=== PATIENT | male | born 1965 | race Caucasian/White ===

== ENCOUNTER → 2017-09-18 | Day surgery (SDC) | payer BC, OTHER ==
[2017-09-13 10:13] VITALS: BMI 25.4
[~2017-09-18] MED LIST: DEXAMETHASONE SOD PHOSPHATE 10 MG/ML 1 ML VIAL IV ONE; HEPARIN SODIUM,PORCINE 5,000 UNIT/ML 1 ML VIAL SQ ONE; LACTATED RINGERS 1,000 ML IV SCH; LIDOCAINE 1% 20 ML VIAL (10MG/ML) FOR IV START INTRADERMA ONE; LIDOCAINE 1% INJ 10MG/ML (20 ML MDV) ONE; LIDOCAINE 1% INJ 10MG/ML (20 ML MDV) SQ ONE; MIDAZOLAM 2 MG/2 ML VIAL IV PRN; MIDAZOLAM 2 MG/2 ML VIAL ONE; ONDANSETRON 4 MG/2 ML VIAL IVP ONE; PROPOFOL 10 MG/ML 20 ML VIAL IV ONE; Pre Op ABX Message 1 EACH MISC MISCELLANE ONE; ceFAZolin 1,000 MG/50 ML BAG (PMX) IVPB ONE; ePHEDrine SULFATE/0.9% NACL/PF 50 MG/5 ML SYRINGE IV ONE; fentaNYL (PF) 50 MCG/ML 2 ML AMP ONE
--- NOTE | 2017-09-18 11:25 | P.OP ---
Date of Procedure: 09/18/17 Preoperative Diagnosis: Left breast painful gynecomastia Postoperative Diagnosis: same Procedure(s) Performed: Left breast excision of gynecomastia Anesthesia: JOAO Surgeon: Ilene Phelan Estimated Blood Loss (ml): 20 IV fluids (ml): 400 Pathology: other (breast tissue) Condition: stable Disposition: PACU Indications for Procedure: Painful gynecomastia Operative Findings: dense Breast tissue behind in the nipple/areolar complex Description of Procedure: Patient was taken to the operating room and following induction of anesthesia the left breast was prepped and draped in a sterile fashion. A circumareolar incision was made and carried laterally. Superior and inferior skin flaps were developed. The breast tissue was dissected down to the chest wall. Using the Harmonic scalpel hemostasis was attained. The tissue was dissected free from the pectoralis major muscle using the electrocautery device and harmonic scalpel. The dense gynecomastia tissue was removed with the specimen. The dissection was carried laterally to the border the pectoralis major muscle. The specimen was removed. After we were assured that hemostasis was attained the wound was well irrigated. The deep tissues were closed using 3-0 Vicryl suture. The skin was closed using 4-0 Monocryl. Prior to closure a [place] drain was placed and secured using a nylon suture. All instrument and sponge counts were correct at the end of the case. Patient tolerated the procedure in stable condition.
--- NOTE | 2017-09-18 11:27 | P.DS ---
Providers Attending physician: Ilene Phelan Primary care physician: Vitaliy Langford Plan - Discharge Summary New Discharge Prescriptions: No Action Lisinopril [Zestril] 10 mg PO DAILY Discharge Medication List Lisinopril [Zestril] 10 mg PO DAILY 09/13/17 [History] Follow up Appointment(s)/Referral(s): Ilene Phelan MD [STAFF PHYSICIAN] - 1 Week Activity/Diet/Wound Care/Special Instructions: do not drive today teach patient drain care may shower after 48 hours keep pressure dressing on at all times Discharge Disposition: HOME SELF-CARE
[2017-09-18 11:41] VITALS: TEMP 97.4
[2017-09-18] MEDS: HYDROmorphone 0.5 MG/0.5 ML SYRINGE IVP PRN ×4 (11:45→12:30)
[2017-09-18 12:05] LABS: Glucose,Whole Blood 139 mg/dL (75-99)
[2017-09-18 14:14] VITALS: RESP 18
[2017-09-18 14:16] VITALS: BP 107/67; PULSE 88
== END | disposition home or self-care (01) ==
LOC: OR 08:11
PROVIDERS: ATTEND Surgery
DX: N62 Hypertrophy of breast (principal); N60.81 Other benign mammary dysplasias of right breast; Z87.891 Personal history of nicotine dependence; I10 Essential (primary) hypertension; Z79.899 Other long term (current) drug therapy
CPT/HCPCS: 88305; 19300; J2250; J1644; J1100; J2405; J2001; J3010; J0690; J2704; J1170; 88307

== ENCOUNTER → 2018-07-09 | Outpatient (CLI) | payer BC, OTHER ==
--- NOTE | 2018-07-09 15:02 | CT ---
EXAMINATION TYPE: CT knee RT wo con DATE OF EXAM: 07/09/2018 COMPARISON: 06/06/2010 plain films HISTORY: Right knee pain post trauma 1 month ago, sprain of medial collateral ligament, sprain anteri or cruciate ligament CT DLP: 533.6 mGycm Automated exposure control for dose reduction was used. FINDINGS: Subtle cortical irregularity along the posterior margin lateral tibial plateau is present in the axia l plane. Example image series 3 image 49. Posterior tibial plateau chip fracture could be considered. This may be the appearance due to degenerative changes. Correlate with location of the patient's sofie n. No additional areas suspicious for possible fracture are identified. Joint space appears preserved. There is moderate soft tissue swelling along the medial collateral lig ament region. Smoothly marginated metaphyseal hypodensity within the proximal tibia is present. This has a benign a ppearance. Aneurysmal bone cyst may be present. IMPRESSION: 1. POSTERIOR TIBIAL PLATEAU FRACTURE WITHIN THE LATERAL COMPARTMENT IS NOT EXCLUDED. PLEASE SEE ABOVE DISCUSSION, CORRELATE WITH LOCATION OF THE PATIENT'S PAIN. ADDITIONAL AREAS SUSPICIOUS FOR FRACTURE ARE NOT EVIDENT. 2. SOFT TISSUE SWELLING ALONG THE ANTERIOR AND MEDIAL ASPECT OF THE RIGHT KNEE ON THE EXPECTED REGION OF THE MEDIAL COLLATERAL LIGAMENT. STRAIN OR PARTIAL TEAR SHOULD BE CONSIDERED. CORRELATE WITH MRI R ESULTS.
== END ==
LOC: RADCTMAIN 09:23
PROVIDERS: ATTEND Orthopaedic Surgery Sports Medicine
DX: M79.89 Other specified soft tissue disorders (principal)

== ENCOUNTER 2018-08-09 06:53 | Day surgery (SDC) | payer BC, OTHER ==
[2018-08-06 09:12] VITALS: BMI 27.2
[~2018-08-09 06:53] MED LIST changes: -HEPARIN SODIUM,PORCINE 5,000 UNIT/ML 1 ML VIAL SQ ONE; -LIDOCAINE 1% 20 ML VIAL (10MG/ML) FOR IV START INTRADERMA ONE; +LIDOCAINE 1% 20 ML VIAL (10MG/ML) FOR IV START INTRADERMA PRN; -LIDOCAINE 1% INJ 10MG/ML (20 ML MDV) ONE; -LIDOCAINE 1% INJ 10MG/ML (20 ML MDV) SQ ONE; +MIDAZOLAM (PF) 2 MG/2 ML VIAL IV PRN; -MIDAZOLAM 2 MG/2 ML VIAL IV PRN; -MIDAZOLAM 2 MG/2 ML VIAL ONE; -ONDANSETRON 4 MG/2 ML VIAL IVP ONE; -PROPOFOL 10 MG/ML 20 ML VIAL IV ONE; -Pre Op ABX Message 1 EACH MISC MISCELLANE ONE; -ceFAZolin 1,000 MG/50 ML BAG (PMX) IVPB ONE; +ceFAZolin IN SWFI 2 GM/20 ML SYRINGE IVP ONE; -ePHEDrine SULFATE/0.9% NACL/PF 50 MG/5 ML SYRINGE IV ONE; +fentaNYL (PF) 50 MCG/ML 2 ML AMP IV PRN; -fentaNYL (PF) 50 MCG/ML 2 ML AMP ONE
[2018-08-09] MEDS ORDERED: DEXAMETHASONE SOD PHOS (MDV) 100 MG/10 ML VIAL IVP ONE (07:41)
[2018-08-09] MEDS ORDERED: LIDOCAINE 1% INJ 10MG/ML (20 ML MDV) ONE (08:06)
[2018-08-09] MEDS ORDERED: MIDAZOLAM 2 MG/2 ML VIAL ONE (08:06)
[2018-08-09] MEDS ORDERED: NEOSTIGMINE 1 MG/ML 10 ML VIAL ONE (08:06)
[2018-08-09] MEDS ORDERED: fentaNYL (PF) 50 MCG/ML 2 ML AMP ONE (08:06)
[2018-08-09] MEDS ORDERED: HYDROmorphone (PF) 1 MG/ML ONE (08:06)
[2018-08-09] MEDS ORDERED: GLYCOPYRROLATE 0.2 MG/ML 2 ML VIAL ONE (08:06)
[2018-08-09] MEDS ORDERED: PROPOFOL 10 MG/ML 20 ML VIAL IV ONE (08:06)
[2018-08-09] MEDS ORDERED: SUCCINYLCHOLINE CHLORIDE 100 MG/5 ML SYR IV ONE (08:06)
[2018-08-09] MEDS ORDERED: ROCURONIUM BROMIDE 10 MG/ML 10 ML VIAL IV ONE (08:06)
[2018-08-09] MEDS ORDERED: BUPIVACAINE (PF) 0.25% 30 ML VIAL SQ ONE ×2 (08:44)
[2018-08-09] MEDS ORDERED: ceFAZolin 1,000 MG in SODIUM CHLORIDE 0.9% 1,000 ML IRRIGATION ONE (08:47)
[2018-08-09] MEDS ORDERED: LACTATED RINGERS 1,000 ML IV ONE (09:30)
[2018-08-09] MEDS: MEPERIDINE 50 MG/ML SYRINGE IVP ONE ×2 (10:05→10:13)
[2018-08-09 10:14] VITALS: TEMP 96.8
[2018-08-09 10:19] VITALS: RESP 16
[2018-08-09] MEDS: HYDROmorphone 1 MG/ML 1 ML SYRINGE IVP ONE ×2 (10:42→10:51)
[2018-08-09] MEDS ORDERED: HYDROcodone/APAP 7.5-325MG 1 EACH TAB PO ONE (11:32)
[2018-08-09 11:54] VITALS: BP 134/88; PULSE 74
--- NOTE | 2018-08-27 09:05 | P.OP ---
Date of Procedure: 08/12/18 Procedure(s) Performed: PREOPERATIVE DIAGNOSES: 1. Right knee anterior cruciate ligament tear POSTOPERATIVE DIAGNOSES: 1. Right knee anterior cruciate ligament tear PROCEDURES PERFORMED: 1. Right knee arthroscopically-assisted anterior cruciate ligament reconstruction with soft tissue allograft ANESTHESIA: human resources office assistant: Lindy Rudolph PA-C (assistance with: patient positioning, retraction, graft prep, camera operation, reconstruction, irrigation, closure, dressing) COMPLICATIONS: None ESTIMATED BLOOD LOSS: Less than 20 cc TOURNIQUET: 75 minutes DISPOSITION: To post-anesthesia care unit INDICATIONS: Margarito is a 53-year-old male with a history of right knee ACL tear. We have discussed different approaches to ACL reconstruction and the decision is for hamstring autograft reconstruction. I have explained the details of this surgery thoroughly and also explained the potential risks and complications, including the relative risks of graft failure. Other risks are inclusive of, but not limited to: bleeding, infection, scarring, discomfort, blood vessel and nerve damage, stiffness, weakness, need for further surgery, failure to relieve symptoms, persistence or worsening of problems, , and other risks. The patient and parents are aware of these risks and agree to proceed with surgery. The consent form has been signed. PROCEDURE: After appropriate consent was obtained, the patient was taken to the operating room and placed supine on the operating table. General anesthesia was initiated. The knee was examined under anesthesia. Medial collateral, lateral collateral and posterior cruciate ligaments were all intact. There was positive pivot shift of 2+ and 4mm anterior translation with both Miladys and anterior drawer. Full range of motion was noted without crepitus. No effusion or soft tissue swelling was noted. Prepping and draping of the right knee was performed in the usual sterile fashion using ChloraPrep. Care was taken that all pressure points were adequately padded. Leg bhakta and pneumotourniquet were used. Time-out was called according to [employer] standards, confirming patient identity, surgical procedure, side, and antibiotic administration. Graft preparation took place on the Arthrex graft preparation station. The preprepared graft was inserted onto the Arthrex ACL tightrope RT on one side , and the ABS sutures on the other. These devices were then attached to the adjustable sliding units on the prep station. The graft was then set to 20 pounds of tension on the graft prep board and covered with a sterile saline soaked gauze pad. During the preparation of the graft, arthroscopy commenced. The surgical portals were placed directly next to the patellar tendon medially and laterally. Camera and instruments were carefully inserted into the knee and arthroscopy was performed. The patellofemoral joint was normal. Hyaline cartilage was normal. No loose bodies in the medial or lateral gutters, quad tendon normal. No plica. Lateral compartment showed normal hyaline cartilage without defect. Meniscus was normal to visualization and probing. No loose bodies were seen within the lateral compartment. Medial compartment was then examined. Medial hyaline cartilage of the femur and tibia were normal. Medial meniscus showed minor degenerative changes but nothing that needed surgical treatment. The notch of the knee was then inspected. The patient had a complete tear of the ACL at the femoral attachment with a small Cyclops lesion. The remnant was debrided away with care to avoid injuring the PCL. The notch in this patient was somewhat narrow, and so it was expanded in the lateral direction with a heladio. Only 3 mm of bone was resected from the lateral portion of the notch, just enough to get the guide in.. The soft tissue on the lateral side of the notch was cleared as necessary using a shaver. Next, the femoral socket was created using the Arthrex flip cutter guide. The guide was adjusted through the anterolateral portal after careful measurement of the anterior to posterior condylar distance on the lateral notch. A spot approximately between 40 and 50% of this length was chosen and the guide was moved superiorly only as much as to allow for a 2.5 mm back wall. Incision was created on the lateral side of the thigh over the IT band and the guide was placed against the bone. Guide position was adjusted so that there was 20 of anterior elevation in the coronal plane of the femur and 60 in the sagittal plane. Drilling was then performed using the flip cutter drill pin into the knee at the appropriate location. Once the pin position was noted to be satisfactory, the guide was removed and the drill sleeve was tapped into the bone using a mallet. The flip cutter was then deployed and retro-drilling was performed to create a femoral socket of approximately 25 mm. Debris was suctioned out using a shaver. Passing suture was then inserted into the knee joint and carried out through the anteromedial portal. The tibial tunnel was created by the following steps. The retro-cutter aiming guide for the tunnel was placed into the anteromedial portal and onto the cleared central footprint of the mentasta ACL. The guide cylinder was placed securely on the tibial cortex. The tibial bone length was measured. The retro- cutter guide pin was then inserted into the tibia to emerge at the mid- posterior aspect of the mentasta ACL footprint, approximately 5 mm from the PCL and just anterior to the posterior border of the anterior horn of the lateral meniscus. The pin was noted to be in excellent position. The retro-cutter was then deployed and reverse drilling was performed creating a tibial socket approximately 30 mm in length. No fracture was noted. The intraarticular debris was removed using a shaver. Graft passing suture was placed. The femoral portion of the GraftLink construct was then inserted into the knee joint, guided by the passing suture. The Endobutton was carried through the femoral cortex and flipped, engaging the cortex securely. Approximately 10 mm or so of the graft was then placed into the femoral socket, using the sutures of the Endobutton. In similar fashion, the graft passing suture was placed into the loop and brought out through the tibial tunnel. This brought the tibial ABS sutures along with it. Approximately 15 mm of graft was placed within the tibial tunnel at which point the adjustable button for the tibia was placed on the sutures. The femoral portion of the graft was completely deployed at this point and bottomed out nicely. The adjustable button was confirmed to be on the cortex of the tibia without interposed soft tissue and preliminary tensioning was performed at that point in full extension. No graft impingement was noted. The knee was then taken through range of motion cycling 10 times. There was no significant motion of the graft detected and the femoral and tibial fixation was noted to be solid. Further tightening of the sutures was performed in extension from the tibial side and the knee was cycled 10 more times with final tightening of the sutures at that point. Sutures were then tied together over the button. Knee was then taken through range of motion which was noted to be full. No graft impingement was noted at the roof or sides of the notch. Fluid was removed from the knee and testing was performed. Anterior drawer 0 mm and Miladys 0 mm. Negative pivot shift. Tourniquet was deflated. Hemostasis was obtained using cautery and pressure. Graft passing sutures were removed or cut as necessary. Thorough irrigation using antibiotic solution was performed, and portals were closed with 4-0 Monocryl suture. Posterior medial incision for hamstring harvest was closed with 3-0 Vicryl suture in the subcutaneous tissue, followed by 4-0 Monocryl suture in running subcuticular fashion for the skin, followed by Dermabond. Tibial incision was closed with 4-0 Monocryl for the skin. Steri strips were applied. Sterile dressing and light compressive dressing was applied using Webril and LORENA wrap. Knee immobilizer was applied. Patient tolerated the procedure well and taken to recovery room in stable condition. Sponge and needle counts were correct.
== END 2018-08-09 12:19 | disposition home or self-care (01) ==
LOC: OR 06:53
PROVIDERS: ATTEND Orthopaedic Surgery
DX: S83.511A Sprain of anterior cruciate ligament of right knee, initial encounter (principal); W14.XXXA Fall from tree, initial encounter; I10 Essential (primary) hypertension; Z96.89 Presence of other specified functional implants; Z79.1 Long term (current) use of non-steroidal anti-inflammatories (NSAID); Z79.891 Long term (current) use of opiate analgesic; Z87.891 Personal history of nicotine dependence
CPT/HCPCS: 29888; C1713; J2250; J2710; J2175; J0690 ×2; J2001; J3010; J1170; J1100; J0330; J2704

== ENCOUNTER → 2022-05-19 | Outpatient (CLI) | payer BC ==
[2022-05-19 16:09] VITALS: BP 159/96; PULSE 98; RESP 18; TEMP 97.8
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
== END | disposition home or self-care (01) ==
LOC: WWCWWP 15:45
PROVIDERS: ATTEND Surgery
DX: Z53.9 Procedure and treatment not carried out, unspecified reason (principal)

== ENCOUNTER 2022-06-06 12:18 | Day surgery (SDC) | payer BC, OTHER ==
[~2022-06-06 12:18] MED LIST changes: -DEXAMETHASONE SOD PHOSPHATE 10 MG/ML 1 ML VIAL IV ONE; +HEPARIN SODIUM,PORCINE/PF 5,000 UNIT/0.5 ML SYRINGE SQ PRN; -LACTATED RINGERS 1,000 ML IV SCH; -LIDOCAINE 1% 20 ML VIAL (10MG/ML) FOR IV START INTRADERMA PRN; -MIDAZOLAM (PF) 2 MG/2 ML VIAL IV PRN; +Pre Op ABX Message 1 EACH MISC MISCELLANE ONE; -ceFAZolin IN SWFI 2 GM/20 ML SYRINGE IVP ONE; -fentaNYL (PF) 50 MCG/ML 2 ML AMP IV PRN
[2022-06-06] MEDS ORDERED: ONDANSETRON 4 MG/2 ML VIAL ONE (12:54)
[2022-06-06] MEDS ORDERED: LACTATED RINGERS 1,000 ML IV ONE (13:05)
[2022-06-06] MEDS ORDERED: DEXAMETHASONE SOD PHOSPHATE 4 MG/ML 1 ML VIAL IVP ONE (13:05)
[2022-06-06] MEDS ORDERED: PHENYLEPHRINE-0.9% NACL SYG 1,000 MCG/10 ML SYRINGE ONE (14:00)
[2022-06-06] MEDS ORDERED: SUCCINYLCHOLINE CHLORIDE 200 MG/10 ML VIAL IV ONE (14:00)
[2022-06-06] MEDS ORDERED: WATER FOR INJECTION, STERILE 10 ML VIAL IV ONE (14:00)
[2022-06-06] MEDS ORDERED: fentaNYL (PF) 50 MCG/ML 2 ML AMP ONE (14:00)
[2022-06-06] MEDS ORDERED: LIDOCAINE 2% INJ 20 MG/ML (2 ML VIAL) ONE (14:00)
[2022-06-06] MEDS ORDERED: PROPOFOL 10 MG/ML 20 ML VIAL IV ONE (14:00)
[2022-06-06] MEDS ORDERED: VASOPRESSIN 20 UNIT/ML 1 ML VIAL ONE (14:00)
[2022-06-06] MEDS ORDERED: MIDAZOLAM 2 MG/2 ML VIAL ONE (14:00)
[2022-06-06] MEDS ORDERED: ePHEDrine 50 MG/ML 1 ML VIAL ONE (14:00)
--- NOTE | 2022-06-06 15:09 | P.OP ---
Date of Procedure: 06/06/22 Preoperative Diagnosis: Right breast gynecomastia symptomatic Postoperative Diagnosis: Same Procedure(s) Performed: Right simple mastectomy/nipple sparing Anesthesia: JOAO Surgeon: Ilene Phelan Estimated Blood Loss (ml): 7 IV fluids (ml): 300 Pathology: other (Breast tissue) Condition: stable Disposition: same day Indications for Procedure: Symptomatic gynecomastia Description of Procedure: The patient was taken to the operating room and following induction of anesthesia the right breast was approached. In the preoperative area the area for the incision had been marked. This was of the inflow periareolar incision. The incision was formed and the superior flap was developed dissected under the nipple areolar complex. The inferior flap was then developed. The breast was taken off the pectoralis major muscle. The breast tissue was removed. The wound was well irrigated. After assured that hemostasis was attained a #10 GLENNY drain was placed. The drain was secured using a nylon suture. The deep tissues were closed using 2-0 Vicryl suture. This is followed by closure of the skin with a 4-0 Monocryl. The patient tolerated the procedure in stable condition. All instrument and sponge counts were correct at the end of the case.
--- NOTE | 2022-06-06 15:11 | P.DS ---
Providers Attending physician: Ilene Phelan Primary care physician: Gonzalez Mireles Plan - Discharge Summary Discharge Rx Participant: No New Discharge Prescriptions: No Action Ibuprofen [Motrin Ib] 200 mg PO BID PRN PRN Reason: Pain lisinopriL [Zestril] 10 mg PO DAILY Omeprazole [PriLOSEC] 20 mg PO DAILY Discharge Medication List Ibuprofen [Motrin Ib] 200 mg PO BID PRN 08/06/18 [History] Omeprazole [PriLOSEC] 20 mg PO DAILY 03/24/22 [History] lisinopriL [Zestril] 10 mg PO DAILY 03/24/22 [History] Follow up Appointment(s)/Referral(s): Ilene Phelan MD [STAFF PHYSICIAN] - 06/15/22 3:20 pm Activity/Diet/Wound Care/Special Instructions: Do not drive for 24 hours after discharge, or if taking narcotic pain medication use Rohit wrap at all times Teach patient drain care, drain and recorded twice a day and as needed Discharge Disposition: HOME SELF-CARE
[2022-06-06 15:41] VITALS: TEMP 97
[2022-06-06] MEDS ORDERED: HYDROmorphone 0.5 MG/0.5 ML SYRINGE IVP ONE (15:51)
[2022-06-06] MEDS ORDERED: HYDROcodone/APAP 5-325MG 1 EACH TAB PO ONE (16:22)
[2022-06-06] MEDS ORDERED: HYDROcodone/APAP 5-325MG 1 EACH TAB ONE (16:22)
[2022-06-06 16:25] VITALS: RESP 18
[2022-06-06 16:56] VITALS: BP 136/75; PULSE 82
== END 2022-06-06 17:10 | disposition home or self-care (01) ==
LOC: OR 12:18
PROVIDERS: ATTEND Surgery
DX: N62 Hypertrophy of breast (principal)
CPT/HCPCS: 19303; J2250; J0330; J1100; J3010; J2370; J2704; J1170; J1644; J2001; 88307

== ENCOUNTER → 2022-06-15 | Outpatient (CLI) | payer BC ==
--- NOTE | 2022-06-15 15:49 | P.PN ---
Progress Note - Text Progress Note Date: 06/15/22 Richy is a 57-year-old white male who underwent a right nipple sparing mastectomy on . Pathology revealed gynecomastia. He did well post operatively. His drian is a nature approximately 25 mL per day Exam: lungs: clear heart RRR inc: clean and dry Plan: leave drain until next week Follow up to see for probable drain removal CC: Dr. Mireles
== END | disposition home or self-care (01) ==
LOC: WWCWWP 15:07
PROVIDERS: ATTEND Surgery
DX: Z53.9 Procedure and treatment not carried out, unspecified reason (principal)

== ENCOUNTER → 2022-06-20 | Outpatient (CLI) | payer BC ==
[2022-06-20 13:32] VITALS: BP 151/83; PULSE 57; RESP 18; TEMP 98.2
--- NOTE | 2022-06-20 13:33 | P.PN ---
Progress Note - Text Progress Note Date: 06/20/22 Richy is a 57-year-old white male who underwent a right nipple sparing mastectomy on . Pathology revealed gynecomastia. He did well post operatively. His drian is a nature approximately 5 mL per day Exam: lungs: clear heart RRR inc: clean and dry Plan: remove drain follow up as needed CC: Dr. Mireles Additional CC's: Gonzalez Mireles
== END | disposition home or self-care (01) ==
LOC: WWCWWP 11:42
PROVIDERS: ATTEND Surgery
DX: Z53.9 Procedure and treatment not carried out, unspecified reason (principal)

== ENCOUNTER → 2024-06-03 | Outpatient (CLI) | payer BC ==
--- NOTE | 2024-06-03 11:50 | XR ---
EXAMINATION TYPE: XR KUB DATE OF EXAM: 06/03/2024 11:31 AM COMPARISON: None. CLINICAL INDICATION: Male, 59 years old with history of N20.0 N20.1 CALCULUS OF KIDNEY CALCULUS OF UR ETER, TECHNIQUE: XR KUB view(s) obtained. FINDINGS: There is a normal bowel gas pattern. Psoas margins are normal. No organomegaly is present. There is several 0.5 cm calcifications inferior pole left kidney. No suspicious ureteral stones ident ified. IMPRESSION: 1. There are 0.5 cm inferior pole left renal stones present [facility] Caro Morley, , 06/03/2024 11:48 AM
== END | disposition home or self-care (01) ==
LOC: RADXRMAIN 11:02
PROVIDERS: ATTEND Urology
DX: N20.0 Calculus of kidney (principal); N20.1 Calculus of ureter
CPT/HCPCS: 74018

== ENCOUNTER 2024-07-03 08:01 | Day surgery (SDC) | payer BC ==
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
[~2024-07-03 08:01] MED LIST changes: -HEPARIN SODIUM,PORCINE/PF 5,000 UNIT/0.5 ML SYRINGE SQ PRN; +HYDROmorphone 0.5 MG/0.5 ML SYRINGE IVP PRN; +LIDOCAINE 1% (10MG/ML) FOR IV START INTRADERMA PRN; -Pre Op ABX Message 1 EACH MISC MISCELLANE ONE; +droPERidol 5 MG/2 ML VIAL IVP ONE
--- NOTE | 2024-07-03 08:40 | XR ---
EXAMINATION TYPE: XR KUB DATE OF EXAM: 07/03/2024 8:26 AM COMPARISON: 06/03/2024 CLINICAL INDICATION: Male, 59 years old with history of N20.0 Bilateral Renal Stone N20.1 Right Urete ral, , FINDINGS: Generator device right lateral flank with leads extending up along the midline beyond the field-of-vi ew. There is moderate stool burden with air and stool extending distally to the rectum. No dilated sm all bowel. Faint oval 7 mm calcification right side of the pelvis. Bowel content largely obscures the renal shadows. IMPRESSION: 1. Bowel content largely obscures the renal shadows. 2. Faint 7 mm oval density in the right side of the pelvis. Equivocal for pelvic phlebolith versus di stal ureteral stone. 3. Moderate stool burden, possible constipation. [facility], , 07/03/2024 8:37 AM
[2024-07-03] MEDS: LACTATED RINGERS 1,000 ML IV SCH (08:59)
[2024-07-03] MEDS: DEXAMETHASONE SOD PHOSPHATE 4 MG/ML 1 ML VIAL IV ONE (08:59)
[2024-07-03] MEDS: ONDANSETRON 4 MG/2 ML VIAL IVP ONE (08:59)
[2024-07-03] MEDS: IV FLUID CONTINUATION 1,000 ML IV ONE (09:02)
[2024-07-03] MEDS ORDERED: fentaNYL (PF) 50 MCG/ML 2 ML AMP ONE (10:12)
[2024-07-03] MEDS ORDERED: SUCCINYLCHOLINE CHLORIDE 200 MG/10 ML VIAL IV ONE (10:12)
[2024-07-03] MEDS ORDERED: PROPOFOL 10 MG/ML 20 ML VIAL IV ONE (10:12)
[2024-07-03] MEDS ORDERED: NEOSTIGMINE 1 MG/ML 10 ML VIAL ONE (10:12)
[2024-07-03] MEDS ORDERED: LIDOCAINE 1% INJ 10MG/ML (20 ML MDV) ONE (10:12)
[2024-07-03] MEDS ORDERED: ePHEDrine 50 MG/ML 1 ML VIAL ONE (10:12)
[2024-07-03] MEDS ORDERED: GLYCOPYRROLATE 0.2 MG/ML 2 ML VIAL ONE (10:12)
[2024-07-03] MEDS ORDERED: MIDAZOLAM 2 MG/2 ML VIAL ONE (10:12)
[2024-07-03] MEDS ORDERED: ROCURONIUM 10 MG/ML (5 ML VIAL) IV ONE (10:12)
[2024-07-03] MEDS: IOPAMIDOL-370 100ML BTL MISCELLANE ONE ×2 (10:41)
[2024-07-03] MEDS: LACTATED RINGERS 1,000 ML IV ONE ×2 (11:18→11:35)
--- NOTE | 2024-07-03 11:51 | P.OP ---
Date of Procedure: 07/03/24 Preoperative Diagnosis: Right ureteral calculi, left renal calculus Postoperative Diagnosis: Same Procedure(s) Performed: Cystoscopy, bilateral retrograde pyelograms, right ureteroscopy with Holmium laser lithotripsy and stone basketing, left ureteroscopy with Holmium laser lithotripsy, bilateral ureteral stent insertion Anesthesia: JOAO Surgeon: Juan J Ashley Estimated Blood Loss (ml): 10 IV fluids (ml): 700 Condition: stable Disposition: PACU Indications for Procedure: The patient is a 59-year-old white male with a history of urolithiasis. He has recently experienced gross hematuria and left flank pain. CT scan shows a 6 mm left renal calculus, a possible 3 to 4 mm right renal pelvic calculus, and a 4 mm right ureteral calculus. He was offered the options of medical expulsion therapy versus ureteroscopic removal of the calculi. He has elected to undergo the latter. Operative Findings: Right distal ureteral calculus, right mid ureteral calculus, both fragmented and removed via stone basketing. 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 Left upper pole calculus, dusted completely. Description of Procedure: The patient was taken to the operating room and placed in the dorsolithotomy position, with legs supported in Uri stirrups. The external genitalia was prepped and draped sterilely. The 30 lens was used to introduce the 21-Luxembourger Roberts cystoscopic sheath through the urethra and into the bladder under direct vision. The prostatic urethra showed evidence of mild lateral lobe enlargement. The bladder was examined in its entirety. Both ureteral orifices were normal anatomic location and configuration, and clear urine effluxed from both. No tumors or foreign bodies were seen. Using a 10 Luxembourger cone-tip catheter, bilateral retrograde pyelograms were performed. The left ureter was normal in course and caliber, without filling defects. There was no evidence of hydronephrosis. On the right side, a distal ureteral calculus was identified along with a mid ureteral calculus. Partial ureteral duplication was noted, at the level of L5. The Roberts semirigid ureteroscope was advanced into the bladder, and the right ureteral orifice was cannulated. The ureteroscope was slowly advanced, but an area of narrowing was encountered. A 0.035 inch Glidewire was passed through the ureteroscope, which was removed. A 15 Luxembourger, 4 cm balloon dilating catheter was passed over the wire and used to dilate the area of narrowing within the right distal ureter. It was then possible to perform ureteroscopy and reach the more distal of the 2 calculi. The 272 m holmium laser probe was passed through the ureteroscope, the lithotripsy was performed. After fragmenting this calculus, the ureteroscope was advanced to the mid ureteral calculus, which was also fragmented. A 1.9 Luxembourger nitinol basket was used to remove the calculus fragments from the ureter. Inspection of the ureter showed no evidence of ureteral trauma. The cystoscope was replaced into the bladder. The Glidewire was passed through the cystoscope, and the Glidewire was advanced up to the left renal pelvis. The cystoscope was removed, and an 11/13-Luxembourger ureteral access catheter was passed over the wire, up to the proximal ureter. The MWHS flexible ureteroscope was then passed through the ureteral access catheter sheath, up to the renal pelvis. Each calyx was examined. The only calculus seen was within an upper pole calyx, measuring approximately 6 mm in size. The 272 micron Holmium laser probe was passed through the ureteroscope, and lithotripsy was performed utilizing a dusting mode. After dusting the calculus completely, the ureteroscope was slowly withdrawn under direct vision. Pullout ureteroscopy showed no evidence of ureteral trauma. After removing the ureteroscope, the cystoscope was replaced into the bladder. 28 cm, 4.8 Luxembourger double-J ureteral stents were placed in the standard fashion bilaterally. Proper stent positioning was verified fluoroscopically and endoscopically. Calculus fragments were removed from the bladder. The bladder was emptied and the cystoscope removed. Strings were left attached to the end of the stents and were taped to the penis using a Tegaderm dressing. The patient tolerated the procedure well and was taken to the recovery room in stable condition. Business Combined Report: Procedure Acuity: Semi-Urgent Stone Size and Location: 3 x 6 mm, right distal ureter. 4 mm, right mid ureter. 6 mm, left upper pole. Ureteral Dilation: Balloon Dilation Ureteral Access Sheath Used: Yes Stone Sent for Analysis: Yes All Stones/Fragments Were Removed with a Basket: Yes Complications: No Preoperative Antibiotics Given: Yes Stent Placed: Yes If Stent Placed, Was String Left Attached: Yes If Stent Placed, When is it to be Removed: 1 week Discharge Medications: Toradol, tamsulosin
[2024-07-03 11:57] VITALS: TEMP 97.4
--- NOTE | 2024-07-03 12:18 | FL ---
EXAMINATION TYPE: FL urography retrograde DATE OF EXAM: 07/03/2024 FLUOROSCOPY Cysto for bilateral kidney stones and bilateral stent insertion 1.02min fluoro time .[id number] Ashley 10 images are submitted. [facility], , 07/03/2024 12:15 PM
[2024-07-03 12:35] VITALS: RESP 16
[2024-07-03] MEDS: KETOROLAC 15 MG/ML 1 ML VIAL IVP STA (12:49)
[2024-07-03 13:17] VITALS: BP 152/91; PULSE 75
== END 2024-07-03 13:45 | disposition home or self-care (01) ==
LOC: OR 08:01
PROVIDERS: ATTEND Urology
DX: N20.2 Calculus of kidney with calculus of ureter (principal); Q62.5 Duplication of ureter; I10 Essential (primary) hypertension; K21.9 Gastro-esophageal reflux disease without esophagitis; Z79.899 Other long term (current) drug therapy
CPT/HCPCS: 82365; 74420; 74018; 52356; C2625; C1758; C1769; J2250; J0330; J1100; J2710; J0690; J2405; J2003; J3010; J1885; J2704; Q9967; J1596